=== PATIENT | male | born 1950 | race Caucasian/White ===

== ENCOUNTER 2025-01-16 06:34 | Day surgery (SDC) | payer OTHER, SELFPAY | END 2025-01-16 10:48 | disposition home or self-care (01) | LOC: GI 06:34 | PROVIDERS: ATTENDING PHYSICIAN Internal Medicine Gastroenterology | DX: Z12.11 Encounter for screening for malignant neoplasm of colon (principal); K64.8 Other hemorrhoids; K57.30 Diverticulosis of large intestine without perforation or abscess without bleeding; K62.89 Other specified diseases of anus and rectum; Z86.0101 Personal history of adenomatous and serrated colon polyps | CPT/HCPCS: G0105 ==